=== PATIENT | female | born 1970 | race Caucasian/White ===

== ENCOUNTER 2016-09-07 12:59 | Emergency (ER) | payer MEDICAID ==
[~2016-09-07 12:59] MED LIST: BACTRIM DS TAB1 EAC2 PO; CIPRO500 M2 PO; COMPAZINE10 MG PO; FLOVENT DISKUS50 MCG IH; GABAPENTIN300 M1 PO; GLIPIZIDE XL5 M1 PO; GLIPIZIDE10 M2; HYDROCODON-ACE1 EA15 PO; METFORMIN HCL1000 M2 PO; METFORMIN HCL1000 M3 PO; NORCO 5-325 TA1 EACH PO; VENTOLIN HFA18 G2 PO; [UNRECOGNIZED DRUG - CODE]; [UNRECOGNIZED DRUG - OTHER] PO
[2016-09-07] MEDS ORDERED: HYDROCODON-ACE1 EA16 PO (14:15)
[2016-09-07] MEDS ORDERED: ZOLOFT50 M1 PO (14:15)
[2016-09-07] MEDS ORDERED: TEMAZEPAM PO (14:15)
[2016-09-07] MEDS ORDERED: AMITRIPTYLINE H25 M1 PO (14:16)
[2016-10-01] MEDS ORDERED: KLONOPIN1 M1 (20:37)
[2016-10-01] MEDS ORDERED: HYDROCODON-ACE1 EA16 PO (20:38)
[2016-10-01] MEDS ORDERED: TIZANIDINE HCL4 M3 PO (20:41)
[2016-10-14] MEDS ORDERED: IMETREX (00:01)
[2016-10-14] MEDS ORDERED: PERCOCET 5-3251 EACH PO (00:02)
== END 2016-09-07 15:30 ==
LOC: EDMED 12:59
DX: G43.909 Migraine, unspecified, not intractable, without status migrainosus (principal); G50.0 Trigeminal neuralgia; E11.9 Type 2 diabetes mellitus without complications; F32.9 Major depressive disorder, single episode, unspecified; F41.9 Anxiety disorder, unspecified; J45.909 Unspecified asthma, uncomplicated; Z98.890 Other specified postprocedural states; Z87.891 Personal history of nicotine dependence; Z79.51 Long term (current) use of inhaled steroids; Z79.84 Long term (current) use of oral hypoglycemic drugs; Z79.899 Other long term (current) drug therapy
CPT/HCPCS: J1170; J1885